=== PATIENT | female | born 1940 | race Caucasian/White ===

== ENCOUNTER 2022-03-12 13:44 | Emergency (ER) | payer OTHER ==
[2022-03-12] MEDS ORDERED: Ondansetron ODT 4 MG TAB ONE (14:00)
[2022-03-12 15:05] LABS: SARS-CoV-2 NAA Rapid Test DETECTED (NotDetected)
== END 2022-03-12 15:29 | disposition home or self-care (01) ==
LOC: ERS 13:44
DX: U07.1 COVID-19 (principal); I10 Essential (primary) hypertension; E78.00 Pure hypercholesterolemia, unspecified; Z79.899 Other long term (current) drug therapy
CPT/HCPCS: 71045; Q0162